=== PATIENT | male | born 1955 | race Caucasian/White ===

== ENCOUNTER 2017-04-03 14:26 | Emergency (ER) | payer BC ==
[2017-04-03 14:42] VITALS: BP 119/77
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
== END 2017-04-03 15:52 ==
LOC: UCEAST 14:26
DX: R42 Dizziness and giddiness (principal); R51 Headache; R20.2 Paresthesia of skin; R26.81 Unsteadiness on feet; Z88.1 Allergy status to other antibiotic agents; Z88.0 Allergy status to penicillin; Z88.8 Allergy status to other drugs, medicaments and biological substances
CPT/HCPCS: 93005; 99212; G0463

== ENCOUNTER 2017-04-03 18:27 | Emergency (ER) | payer BC ==
[2017-04-03 21:00] LABS: ABS Basophils 0.1 10^3/ul (0-0.2); ABS Eosinophils 0.1 10^3/ul (0-0.6); ABS Lymphocytes 1.9 10^3/ul (1.0-4.8); ABS Neutrophils 6.2 10^3/ul (1.5-7.7); ABS Nucleated RBC 0 10^3/ul; Eosinophil % 1.5 % (0-6); Hematocrit 40 % (42-52); Hemoglobin 13.9 g/dl (14.0-18.0); Lymphocyte % 20.2 % (25-47); Mean Corpuscular HGB Conc 35 g/dl (31-36); Mean Corpuscular Hemoglobin 32 pg (27-31); Mean Corpuscular Volume 91 fL (80-94); Mean Platelet Volume 7 um3 (7.4-10.4); Nucleated Red Blood Cells % 0.1; Platelet Count 318 10^3/ul (150-450); Red Blood Count 4.39 10^6/ul (4.0-5.4); Red Cell Distribution Width 13 % (10.5-15); White Blood Count 9.3 10^3/ul (3.5-10.8)
[2017-04-03 21:15] LABS: EGFR Non-African American 113.6 (>60)
--- NOTE | 2017-04-03 22:01 | RAD ---
INDICATION: Dizziness COMPARISON: CT brain October 15, 2015 TECHNIQUE: Noncontrast axial source images were acquired from the skull base to the vertex. FINDINGS: Ventricles/sulci: The ventricles and cisterns are normal in size and configuration for age. Brain parenchyma: There is no focal parenchymal finding, evidence of intracranial mass, or intracranial mass effect. Intracranial hemorrhage:None. Extra-axial spaces: There are no abnormal extra axial fluid collections or evidence of extra-axial mass. Calvarium: There is no calvarial fracture or other calvarial abnormality. Scalp: There is no evidence of scalp or extracalvarial soft tissue abnormality. Paranasal sinuses/mastoid: The paranasal sinuses and mastoid air cells are clear. Other: None. IMPRESSION: No acute intracranial findings
[2017-04-03 22:12] LABS: Urine Appearance Clear; Urine Blood Negative (Negative); Urine Color Yellow; Urine Ketones Negative (Negative); Urine Protein Negative (Negative); Urine Specific Gravity 1.017 (1.010-1.030); Urine Urobilinogen Negative (Negative)
--- NOTE | 2017-04-03 22:37 | ED ---
I, Melodie Rosario, scribed for Darrin Meier MD on 04/03/17 at 2222 . Progress - Progress Note Progress Note: The patient is signed out from Dr. Mcneal pending Brain CT. Brain CT. Interpreted by a radiologist. IMPRESSION: No acute intracranial findings. Dr. Meier has reviewed this report. Re-Evaluation - Re-Evaluation First Eval Change: Improved - pt offered IVF, etc -- he refused. States he would rather take oral fluids. Given oral water. Course/Dx - Course Course Of Treatment: Pt had fleeting dizziness, better now. Also reports hx of neuropathy etc. Now with some twitching and some discomfort of the R eye. No blephrospams. CN intact. Vision nl. EOMi. Will tx with hydration and prn DEGROOT medication. Has f/u early next week with [facility] with whom he is establishing. - Diagnoses Provider Diagnoses: Dizziness, Mild dehydration, Cluster headache The documentation as recorded by the kimibeAbraham Jennifer accurately reflects the service I personally performed and the decisions made by , Darrin Meier MD.
[2017-04-03 22:55] VITALS: BP 139/78
--- NOTE | 2017-04-04 20:46 | ED ---
Juju Deleon Julia, scribed for Cody Mcneal on 04/03/17 at 2123 . Dizziness - HPI Summary HPI Summary: This patient is a 61 year old M presenting to [facility] with a chief complaint of dizziness and headache behind the eyes for the past month. Patient reports neck pain and extremities. Patient denies chest pain SOB, and fever. The patient rates the pain 7/10 in severity. Symptoms aggravated by standing and. Patient reports history of neuropathy that is aggravated by eating. - History Of Current Complaint Chief Complaint: EDDizziness Stated Complaint: DIZZINESS/NUMBNESS Time Seen by Provider: 04/03/17 21:09 Hx Obtained From: Patient Onset/Duration: Unknown - with standing Timing: Weeks Aggravating Factor(s): Other - standing Associated Signs And Symptoms: Positive: Other: - neck and extremity pain Related History: Similar Episode/Dx as - neuropathy - Allergies/Home Medications Allergies/Adverse Reactions: Allergies Allergy/AdvReac Type Severity Reaction Status Date / Time cefadroxil [From Duricef] Allergy Severe Rash Verified 04/03/17 15:16 fluoxetine [From Prozac] Allergy Severe Rash Verified 04/03/17 15:16 Penicillins Allergy Severe Nausea Verified 04/03/17 15:16 thiabendazole Allergy Severe RED SKIN Verified 04/03/17 15:16 PMH/Surg Hx/FS Hx/Imm Hx Endocrine/Hematology History: Denies: Hx Diabetes, Hx Thyroid Disease Cardiovascular History: Denies: Hx Hypertension, Hx Pacemaker/ICD Respiratory History: Denies: Hx Asthma, Hx Chronic Obstructive Pulmonary Disease (COPD) GI History: Denies: Hx Ulcer History: Denies: Hx Renal Disease Musculoskeletal History: Denies: Hx Rheumatoid Arthritis, Hx Osteoporosis Sensory History: Denies: Hx Hearing Aid Psychiatric History: Denies: Hx Panic Disorder Infectious Disease History: No Infectious Disease History: Denies: Hx Hepatitis, Hx Human Immunodeficiency Virus (HIV), Traveled Outside the [place] in Last 30 Days - Family History Known Family History: Negative: Hypertension, Diabetes - Social History Alcohol Use: Rare Hx Substance Use: No Substance Use Type: Reports: None Hx Tobacco Use: No Smoking Status (MU): Never Smoked Tobacco Review of Systems Negative: Chest Pain Negative: Shortness Of Breath Positive: Myalgia - neck and extremity pain Neurological: Other - dizziness Positive: Headache All Other Systems Reviewed And Are Negative: Yes Physical Exam - Summary Physical Exam Summary: Appearance: Well appearing, no pain distress Skin: warm, dry, reflects adequate perfusion Head/face: normal Eyes: EOMI, CINDY ENT: normal Neck: supple, non-tender Respiratory: CTA, breath sounds present Cardiovascular: RRR, pulses symmetrical Abdomen: non-tender, soft Bowel: present Musculoskeletal: normal, strength/ROM intact Neuro: normal, sensory motor intact, A&Ox3 Triage Information Reviewed: Yes Vital Signs On Initial Exam: Initial Vitals Temp Pulse Resp BP Pulse Ox 99.1 F 74 18 133/86 96 04/03/17 18:33 04/03/17 18:33 04/03/17 18:33 04/03/17 18:33 04/03/17 18:33 Vital Signs Reviewed: Yes Diagnostics - Vital Signs Vital Signs Temp Pulse Resp BP Pulse Ox 04/03/17 18:33 99.1 F 74 18 133/86 96 - Laboratory Lab Results: Lab Results 04/03/17 04/03/17 04/03/17 Range/Units 20:38 20:38 20:38 WBC 9.3 (3.5-10.8) 10^3/ul RBC 4.39 (4.0-5.4) 10^6/ul Hgb 13.9 L (14.0-18.0) g/dl Hct 40 L (42-52) % MCV 91 (80-94) fL MCH 32 H (27-31) pg MCHC 35 (31-36) g/dl RDW 13 (10.5-15) % Plt Count 318 (150-450) 10^3/ul MPV 7 L (7.4-10.4) um3 Neut % (Auto) 66.5 (38-83) % Lymph % (Auto) 20.2 L (25-47) % [place] % (Auto) 11.1 H (1-9) % Eos % (Auto) 1.5 (0-6) % Baso % (Auto) 0.7 (0-2) % Absolute Neuts (auto) 6.2 (1.5-7.7) 10^3/ul Absolute Lymphs (auto) 1.9 (1.0-4.8) 10^3/ul Absolute Monos (auto) 1.0 H (0-0.8) 10^3/ul Absolute Eos (auto) 0.1 (0-0.6) 10^3/ul Absolute Basos (auto) 0.1 (0-0.2) 10^3/ul Absolute Nucleated RBC 0 10^3/ul Nucleated RBC % 0.1 Sodium 139 (133-145) mmol/L Potassium Pending Chloride 101 (101-111) mmol/L Carbon Dioxide 32 (22-32) mmol/L Anion Gap Pending BUN 27 H (6-24) mg/dL Creatinine 0.71 (0.67-1.17) mg/dL Est GFR ( Amer) 146.0 (>60) Est GFR (Non-Af Amer) 113.6 (>60) BUN/Creatinine Ratio 38.0 H (8-20) Glucose 93 (70-100) mg/dL Lactic Acid 0.7 (0.5-2.0) mmol/L Calcium 10.4 H (8.6-10.3) mg/dL Magnesium 2.0 (1.9-2.7) mg/dL Total Bilirubin 0.50 (0.2-1.0) mg/dL AST Pending ALT 21 (7-52) U/L Alkaline Phosphatase 101 (34-104) U/L Troponin I Pending Total Protein 7.3 (6.4-8.9) g/dL Albumin 4.5 (3.2-5.2) g/dL Globulin 2.8 (2-4) g/dL Albumin/Globulin Ratio 1.6 (1-3) TSH Pending Result Diagrams: 04/03/17 20:38 04/03/17 20:38 Lab Statement: Any lab studies that have been ordered have been reviewed, and results considered in the medical decision making process. - EKG 2100 Cardiac Rate: NL - at 59 BPM EKG Rhythm: Sinus Rhythm EKG Interpretation: no acture changes Dizzy Course/Dx - Course Course Of Treatment: This patient presents with dizziness and headache behind the eyes for the past month. Patient reports neck pain and extremities. Patient denies chest pain SOB, and fever. An EKG was unremarkable. Bloodwork was ordered and is unremarkable. A Brain CT was ordered but not recieved before end of shift. Patient care is transfered to Dr. Meier at the end of shift. - Diagnoses Provider Diagnoses: Dizziness Discharge - Discharge Plan Condition: Stable Disposition: OTHER Discharge Disposition Comment: Patient is signed out to Dr. Meier at the end of shift Referrals: No Primary Care Phys,NOPCP [Primary Care Provider] - The documentation as recorded by the Juju morales Julia accurately reflects the service I personally performed and the decisions made by me, Cody Mcneal.
== END 2017-04-03 22:54 | disposition home or self-care (01) ==
LOC: ED 18:27
DX: R42 Dizziness and giddiness (principal); R51 Headache; M79.1 Myalgia; Z88.1 Allergy status to other antibiotic agents; Z88.0 Allergy status to penicillin; Z88.8 Allergy status to other drugs, medicaments and biological substances
CPT/HCPCS: 36415; 70450; 80053; 81003; 83605; 83735; 84443; 84484; 85025; 93005; 99282

== ENCOUNTER 2017-04-10 14:37 | Emergency (ER) | payer BC ==
--- NOTE | 2017-04-10 15:33 | RAD ---
INDICATION: Left hip pain COMPARISON: November 05, 2016 TECHNIQUE: An AP view of the pelvis and AP views of the hip in neutral and abducted position were obtained FINDINGS: There is advanced osteoarthritic change about the left hip with deformity and coxa varus deformity. There is obliteration of joint space superiorly with sclerosis. There is no acute bony change. There is moderate arthritic change about the right hip. The SI joints and symphysis are intact. Generator devices project over the lower abdomen. IMPRESSION: ADVANCED OSTEOARTHRITIS LEFT HIP WITH DEFORMITY. MODERATE OSTEOARTHRITIS RIGHT HIP. NO ACUTE FINDINGS.
[2017-04-10] MEDS ORDERED: traMADol TAB* 50 MG PO ONE (15:51)
--- NOTE | 2017-04-10 16:10 | RAD ---
INDICATION: Arthritis left hip. Injury. COMPARISON: Left hip same date TECHNIQUE: Noncontrast axial source images were obtained from the iliac crests through the symphysis pubis. FINDINGS: There are no CT abnormalities of the bony pelvis. There are advanced degenerative changes about the left hip as described on the plain radiographs with spurring about the acetabulum and femoral head, flattening of the femoral head, and obliteration of the joint space superiorly. There are moderate osteocytic changes about the right hip. The SI joints and symphysis are intact. The prostate and seminal vesicles are normal. No free fluid or adenopathy is seen. The noncontrast CT appearance of the bowel is unremarkable. The superficial soft tissues appear normal. The bladder appears normal. IMPRESSION: ADVANCED OSTEOARTHRITIC CHANGE ABOUT THE LEFT HIP. MODERATE OSTEOARTHRITIS RIGHT HIP. NO ACUTE FINDINGS.
[2017-04-10 17:30] VITALS: BP 140/81
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
== END 2017-04-10 17:30 | disposition home or self-care (01) ==
LOC: ED 14:37
DX: S70.02XA Contusion of left hip, initial encounter (principal); V13.4XXA Pedal cycle driver injured in collision with car, pick-up truck or van in traffic accident, initial encounter; Y93.55 Activity, bike riding; Y92.9 Unspecified place or not applicable; M16.0 Bilateral primary osteoarthritis of hip; Z88.8 Allergy status to other drugs, medicaments and biological substances; Z88.0 Allergy status to penicillin
CPT/HCPCS: 72192; 99283; A9270-GY

== ENCOUNTER 2017-04-13 13:51 | Emergency (ER) | payer BC ==
[2017-04-13 14:05] VITALS: BP 134/76
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
== END 2017-04-13 14:47 | disposition home or self-care (01) ==
LOC: UCEAST 13:51
DX: L03.114 Cellulitis of left upper limb (principal); S80.212A Abrasion, left knee, initial encounter; S80.812A Abrasion, left lower leg, initial encounter; M25.552 Pain in left hip; V13.4XXA Pedal cycle driver injured in collision with car, pick-up truck or van in traffic accident, initial encounter; Y93.55 Activity, bike riding; Y92.9 Unspecified place or not applicable; Z88.0 Allergy status to penicillin
CPT/HCPCS: 99212; G0463

== ENCOUNTER 2017-04-21 12:47 | Emergency (ER) | payer BC ==
[2017-04-21 12:56] VITALS: BP 129/87
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
== END 2017-04-21 13:50 | disposition home or self-care (01) ==
LOC: UCEAST 12:47
DX: S50.812A Abrasion of left forearm, initial encounter (principal); S80.812A Abrasion, left lower leg, initial encounter; S70.02XA Contusion of left hip, initial encounter; S80.02XA Contusion of left knee, initial encounter; V18.0XXA Pedal cycle driver injured in noncollision transport accident in nontraffic accident, initial encounter; Y93.55 Activity, bike riding; Y92.9 Unspecified place or not applicable; Z88.1 Allergy status to other antibiotic agents; Z88.0 Allergy status to penicillin; Z88.8 Allergy status to other drugs, medicaments and biological substances
CPT/HCPCS: 99212; G0463

== ENCOUNTER 2017-04-28 11:26 | Emergency (ER) | payer BC ==
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
[2017-04-28 11:49] VITALS: BP 127/71
== END 2017-04-28 12:08 | disposition home or self-care (01) ==
LOC: UCEAST 11:26
DX: S81.812D Laceration without foreign body, left lower leg, subsequent encounter (principal); T14.8XXD Other injury of unspecified body region, subsequent encounter; V13.4XXD Pedal cycle driver injured in collision with car, pick-up truck or van in traffic accident, subsequent encounter; Z88.0 Allergy status to penicillin; Z88.8 Allergy status to other drugs, medicaments and biological substances
CPT/HCPCS: 99211; G0463

== ENCOUNTER 2017-05-16 15:22 | Emergency (ER) | payer BC ==
[2017-05-16 15:50] VITALS: BP 140/86
--- NOTE | 2017-05-16 17:41 | UC ---
Lower Extremity/Ankle HPI - HPI Summary HPI Summary: 61 yo WM h/o peripheral neuropathy, mild venous insufficiency associated with mild B/L feet swelling - History of Current Complaint Chief Complaint: UCLowerExtremity Stated Complaint: SWOLLEN FEET Time Seen by Provider: 05/16/17 15:59 Hx Obtained From: Patient Onset/Duration: Lasting Days Severity Initially: Mild Severity Currently: Mild Pain Intensity: 3 - Allergies/Home Medications Allergies/Adverse Reactions: Allergies Allergy/AdvReac Type Severity Reaction Status Date / Time cefadroxil [From Duricef] Allergy Severe Rash Verified 05/16/17 15:44 fluoxetine [From Prozac] Allergy Severe Rash Verified 05/16/17 15:44 thiabendazole Allergy Severe RED SKIN Verified 05/16/17 15:44 Penicillins AdvReac Severe Nausea Verified 05/16/17 15:44 Home Medications: Home Medications Testosterone Cypionate 100 mg IM WEEKLY 05/16/17 [History Confirmed 05/16/17] PMH/Surg Hx/FS Hx/Imm Hx Previously Healthy: Yes - Surgical History Surgical History: None - Family History Known Family History: Positive: None Negative: Hypertension, Diabetes Family History: Leukemia from father side - Social History Alcohol Use: Occasionally Substance Use Type: None Smoking Status (MU): Never Smoked Tobacco - Immunization History Most Recent Tetanus Shot: 2014 Review of Systems Constitutional: Negative Skin: Negative Eyes: Negative ENT: Negative Respiratory: Negative Cardiovascular: Negative Gastrointestinal: Negative Genitourinary: Negative Motor: Negative Neurovascular: Negative Musculoskeletal: Negative, Edema - B/L feet, mild Neurological: Negative Psychological: Negative All Other Systems Reviewed And Are Negative: No Physical Exam Triage Information Reviewed: Yes Vital Signs: Initial Vital Signs Temp 36.8 C 05/16/17 15:43 Pulse 60 05/16/17 15:43 Resp 18 05/16/17 15:43 BP 140/86 05/16/17 15:43 Pulse Ox 100 05/16/17 15:43 Eye Exam: Normal ENT Exam: Normal Dental Exam: Normal Neck exam: Normal Neck: Positive: 1 Respiratory Exam: Normal Cardiovascular Exam: Normal Abdominal Exam: Normal Musculoskeletal Exam: Normal Musculoskeletal: Positive: Other: - no edema noted on B/L feet Neurological Exam: Normal Psychological Exam: Normal Skin Exam: Normal Lower Extremity Course/Dx - Course Course Of Treatment: B/L feet swelling is not apparent on exam- pt does have h/ o venous insufficiency and peripheral neuropathy+/-arthrithis. Pt curious about hormonal imbalance for which endocrine and neurology consult and follow up is advised - Differential Dx/Diagnosis Provider Diagnoses: Feet swelling. hypochondriasis Discharge - Sign-Out/Discharge Documenting (check all that apply): Discharge - Discharge Plan Condition: Stable Disposition: HOME Patient Education Materials: Venous Insufficiency (DC), Paresthesia (ED), Leg Cramps (ED) Referrals: Anderson Jauregui MD [Primary Care Provider] - Additional Instructions: please follow up with endocrinology as needed - Billing Disposition and Condition Condition: STABLE Disposition: HOME
== END 2017-05-16 17:40 | disposition home or self-care (01) ==
LOC: UCEAST 15:22
DX: R60.0 Localized edema (principal); F45.21 Hypochondriasis; G62.9 Polyneuropathy, unspecified; I87.2 Venous insufficiency (chronic) (peripheral); Z88.1 Allergy status to other antibiotic agents; Z88.0 Allergy status to penicillin; Z88.8 Allergy status to other drugs, medicaments and biological substances
CPT/HCPCS: 99211; G0463

== ENCOUNTER 2017-06-06 19:52 | Emergency (ER) | payer BC ==
[2017-06-06 20:08] VITALS: BP 152/68
[2017-06-06] MEDS ORDERED: Benzocaine/Butamben/Tetracain* SPRAY TOPICAL ONE (20:13)
--- NOTE | 2017-06-06 20:22 | UC ---
General HPI - HPI Summary HPI Summary: 61 yo WM p/w acute tongue pain x few hrs after drinking a powder mixture of "yohimbe" taking the contents out of the capsule and mixing in his drink, c/o severe sharp tongue pain - History of Current Complaint Chief Complaint: UCBurn Stated Complaint: BURNED TONGUE Time Seen by Provider: 06/06/17 19:52 Hx Obtained From: Patient Onset/Duration: Gradual Onset Onset Severity: Moderate Current Severity: Moderate Pain Intensity: 7 - Allergy/Home Medications Allergies/Adverse Reactions: Allergies Allergy/AdvReac Type Severity Reaction Status Date / Time cefadroxil [From Duricef] Allergy Severe Rash Verified 06/06/17 20:08 fluoxetine [From Prozac] Allergy Severe Rash Verified 06/06/17 20:08 thiabendazole Allergy Severe RED SKIN Verified 06/06/17 20:08 Penicillins AdvReac Severe Nausea Verified 06/06/17 20:08 PMH/Surg Hx/FS Hx/Imm Hx Previously Healthy: Yes - Surgical History Surgical History: None - Family History Known Family History: Positive: None Negative: Hypertension, Diabetes Family History: Leukemia from father side - Social History Alcohol Use: Occasionally Substance Use Type: None Smoking Status (MU): Never Smoked Tobacco - Immunization History Most Recent Tetanus Shot: 2014 Review of Systems Constitutional: Negative Skin: Negative Eyes: Negative ENT: Other - tongue pain and burning Respiratory: Negative Cardiovascular: Negative Gastrointestinal: Negative Genitourinary: Negative Motor: Negative Neurovascular: Negative Musculoskeletal: Negative Neurological: Negative Psychological: Negative All Other Systems Reviewed And Are Negative: Yes Physical Exam Triage Information Reviewed: Yes Appearance: No Pain Distress Vital Signs: Initial Vital Signs Temp 36.5 C 06/06/17 20:04 Pulse 68 06/06/17 20:04 Resp 18 06/06/17 20:04 BP 152/68 06/06/17 20:04 Pulse Ox 100 06/06/17 20:04 Eye Exam: Normal ENT: Positive: Pharynx normal, Other - moderate erythema on left side of tongue area of 2x2cm, no ulcerations, sores or drainage Dental Exam: Normal Neck exam: Normal Neck: Positive: 1 Respiratory Exam: Normal Cardiovascular Exam: Normal Abdominal Exam: Normal Musculoskeletal Exam: Normal Neurological Exam: Normal Psychological Exam: Normal Skin Exam: Normal Course/Dx - Course Course Of Treatment: [place] cetacaine to afftected area 2x daily PRN x 3 days - Differential Dx - Multi-Symptom Provider Diagnoses: Tongue pain Discharge - Sign-Out/Discharge Documenting (check all that apply): Discharge/Admit/Transfer - Discharge Plan Condition: Stable Disposition: HOME Referrals: Anderson Jauregui MD [Primary Care Provider] - Additional Instructions: GO to ER if pain worsens - Billing Disposition and Condition Condition: STABLE Disposition: HOME
== END 2017-06-06 20:30 | disposition home or self-care (01) ==
LOC: UCEAST 19:52
DX: K14.6 Glossodynia (principal); Z88.1 Allergy status to other antibiotic agents; Z88.0 Allergy status to penicillin; Z88.8 Allergy status to other drugs, medicaments and biological substances
CPT/HCPCS: 99212; A9270-GY; G0463

== ENCOUNTER 2018-06-17 12:53 | Emergency (ER) | payer BC ==
[2018-06-17 13:12] VITALS: BP 106/67
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
== END 2018-06-17 13:33 | disposition home or self-care (01) ==
LOC: UCEAST 12:53
DX: S51.812A Laceration without foreign body of left forearm, initial encounter (principal); W22.8XXA Striking against or struck by other objects, initial encounter; Y92.9 Unspecified place or not applicable; E29.1 Testicular hypofunction; Z88.1 Allergy status to other antibiotic agents; Z88.0 Allergy status to penicillin; Z88.8 Allergy status to other drugs, medicaments and biological substances
CPT/HCPCS: 99212; G0463

== ENCOUNTER 2018-06-18 17:37 | Emergency (ER) | payer BC ==
[2018-06-18 18:05] VITALS: BP 127/83
--- NOTE | 2018-06-18 18:15 | UC ---
Upper Extremity HPI - HPI Summary HPI Summary: 62 y/o female presents to the urgent care c/o a wound in his left arm for the past week. Pt reports he sustained a skin tear s/p running into a door. He was applying Bactroban ointment and covering it w/ a band-aid, but wound became infected and he was seen here at the clinic and Rx Doxycycline PO since he is allergic to PCN and ciprofloxacin. Pt has already taken 3 tabs of antibiotics and this morning, wound was draining a yellowish discharge and redness was bigger. He is concerned the antibiotic is not working. Pt states pain is mild 2/ 10 at touch and denies fever, SOB, dizziness, chest pain, abdominal pain, N/V/ D. - History of Current Complaint Chief Complaint: UCUpperExtremity Stated Complaint: LT ARM INJURY Time Seen by Provider: 06/18/18 18:13 Hx Obtained From: Patient Onset/Duration: Sudden Onset, Lasting Weeks - 1 week, Still Present, Worse Since - 2 days Severity Initially: Moderate Severity Currently: Moderate Pain Intensity: 2 Pain Scale Used: 0-10 Numeric Location Of Pain: Is Discrete @ - dorsal side of left forearm w/ an infected wound Aggravating Factor(s): Other - touch Alleviating Factor(s): OTC Meds Associated Signs And Symptoms: Positive: Redness. Negative: Bruising, Fever, Weakness, Numbness/Tingling Related History: Dominant Hand Right - Risk Factors Non-Orthopedic Risk Factor: Negative DVT Risk Factors: Negative Septic Arthritis Risk Factor: Negative - Allergies/Home Medications Allergies/Adverse Reactions: Allergies Allergy/AdvReac Type Severity Reaction Status Date / Time cefadroxil [From Duricef] Allergy Severe Rash Verified 06/18/18 18:05 fluoxetine [From Prozac] Allergy Severe Rash Verified 06/18/18 18:05 thiabendazole Allergy Severe RED SKIN Verified 06/18/18 18:05 ciprofloxacin [From Cipro] Allergy Unknown Verified 06/18/18 18:05 Reaction Details Penicillins AdvReac Severe Nausea Verified 06/18/18 18:05 PMH/Surg Hx/FS Hx/Imm Hx Previously Healthy: Yes - Pt denies PMHX - Surgical History Surgical History: None - Family History Known Family History: Positive: None - Pt denies FMHX Negative: Hypertension, Diabetes Family History: Leukemia from father side - Social History Occupation: Employed Full-time Lives: With Family Alcohol Use: Occasionally Substance Use Type: None Smoking Status (MU): Never Smoked Tobacco - Immunization History Most Recent Tetanus Shot: 2014 Review of Systems All Other Systems Reviewed And Are Negative: Yes Constitutional: Positive: Negative Skin: Positive: Other - dorsal side of left forearm w/ a skin tear wound red and painful and yellowish drainage ENT: Positive: Negative Respiratory: Positive: Negative Cardiovascular: Positive: Negative Gastrointestinal: Positive: Negative Genitourinary: Positive: Negative Motor: Positive: Negative Neurovascular: Positive: Negative Musculoskeletal: Positive: Other: - left forearm pain s/p skin tear Neurological: Positive: Negative Psychological: Positive: Negative Is Patient Immunocompromised?: No Physical Exam - Summary Physical Exam Summary: Vital Signs Reviewed: Yes General: well developed, well nourished male sitting in the examining table w/o any apparent distress Eye Exam: Normal Eyes: Positive: Conjunctiva Clear - PERRLA, EOMI, fundi grossly normal ENT: Positive: Normal ENT inspection, Hearing grossly normal, Pharynx normal, TMs normal Neck: Positive: Supple, Nontender, No Lymphadenopathy Respiratory: Positive: Chest non-tender, Lungs clear, Normal breath sounds, No respiratory distress Cardiovascular: Positive: RRR, No Murmur, Pulses Normal, Brisk Capillary Refill Abdomen Description: Positive: Nontender, No Organomegaly, Soft. Negative: CVA Tenderness (R), CVA Tenderness (L) Bowel Sounds: Positive: Present Musculoskeletal: Positive: Strength Intact, ROM Intact, No Edema Neurological: Positive: Alert, Muscle Tone Normal Psychological Exam: Normal Skin: Positive:Dorsal side if the left mid forearm with 2 small skin tears one adjacent to the the other, round shape, about 2.0 x 1.0cm in size w/ surrounding erythema and mild tenderness to palpation and some clear drainage and central granulation observed. no foreign body observed. no ecchymosis or bruising or streaking around wound or soft tissue swelling observed. FROM of LF arm, sensation intact, capillary refill brisk, and pulses WNL. Triage Information Reviewed: Yes Vital Signs: Initial Vital Signs Temp 97.9 F 06/18/18 17:59 Pulse 53 06/18/18 17:59 Resp 16 06/18/18 17:59 BP 127/83 06/18/18 17:59 Pulse Ox 99 06/18/18 17:59 Upper Extremity Course/Dx - Course Course Of Treatment: 62 y/o female presents to the urgent care c/o a wound in his left arm for the past week. Pt reports he sustained a skin tear s/p running into a door. He was applying Bactroban ointment and covering it w/ a band-aid, but wound became infected and he was seen here at the clinic and Rx Doxycycline PO since he is allergic to PCN and ciprofloxacin. Pt has already taken 3 tabs of antibiotics and this morning, wound was draining a yellowish discharge and redness was bigger. He is concerned the antibiotic is not working. Pt states pain is mild 2/ 10 at touch and denies fever, SOB, dizziness, chest pain, abdominal pain, N/V/ D. Hx obtained. PT w/ Dorsal side if the left mid forearm with 2 small skin tears one adjacent to the the other, round shape, about 2.0 x 1.0cm in size w/ surrounding erythema and mild tenderness to palpation and some clear drainage and central granulation observed. no foreign body observed. no ecchymosis or bruising or streaking around wound or soft tissue swelling observed. FROM of LF arm, sensation intact, capillary refill brisk, and pulses WNL on examination. Wound culture taken form wound and sent to lab to r/o MRSA and sensitivity. Pt will be notified of any abnormality. Pt advised to continue taken Doxycycline since he need to allow antibiotic to work. Wound cleaned w/ iodine swabs and Bacitracin oint applied over wound and wound covered w/sterile dressing by me. Pt Rx Bacitracin oint. Pt advised if streaking develops or severe arm pain and fever develops despite taking antibiotics to go immediately to the ER for further management. D/C instructions explained. Pt understood and agreed w. plan of care. Pt left clinic hemodynamically stabel, A&OX3 - Differential Dx/Diagnosis Differential Diagnosis/HQI/PQRI: Contusion, Other - laceration, puncture wound Provider Diagnosis: Infected wound Discharge - Sign-Out/Discharge Documenting (check all that apply): Patient Departure - d/c home All imaging exams completed and their final reports reviewed: No Studies - Discharge Plan Condition: Stable Disposition: HOME Prescriptions: Bacitracin OINTMENT* 1 applic TOPICAL BID #1 tube Patient Education Materials: Wound Infection (ED) Referrals: Anderson Jauregui MD [Primary Care Provider] - 3 Days Additional Instructions: 1-Please continue taking Doxycycline PO as directed full course of antibiotic to avoid resistance. Keep wound clean and dry with a sterile dressing. Apply bacitracin topical ointment as directed 3- Take Ibuprofen or Tylenol PO q6-8hrs prn after meals for pain or swelling. 4-If you develop fever or redness despite antibiotic please go to the ER immediately or return to the Urgent care. 5- Wound culture sent to lab, if any abnormal result you will receive a call from us. - Billing Disposition and Condition Condition: STABLE Disposition: Home - Attestation Statements Provider Attestation: I was available for consult. This patient was seen by the [facility]. The patient was not presented to, seen by, or examined by me. -Johnnie
--- NOTE | 2018-06-22 07:39 | UC ---
- Progress Note Progress Note: Final wound - normal mitzi pt on doxy no change ljj 06/22/18 Course/Dx - Diagnoses Provider Diagnoses: Infected wound Discharge - Sign-Out/Discharge Documenting (check all that apply): Post-Discharge Follow Up All imaging exams completed and their final reports reviewed: No Studies - Discharge Plan Condition: Stable Disposition: HOME Prescriptions: Bacitracin OINTMENT* 1 applic TOPICAL BID #1 tube Patient Education Materials: Wound Infection (ED) Referrals: Anderson Jauregui MD [Primary Care Provider] - 3 Days Additional Instructions: 1-Please continue taking Doxycycline PO as directed full course of antibiotic to avoid resistance. Keep wound clean and dry with a sterile dressing. Apply bacitracin topical ointment as directed 3- Take Ibuprofen or Tylenol PO q6-8hrs prn after meals for pain or swelling. 4-If you develop fever or redness despite antibiotic please go to the ER immediately or return to the Urgent care. 5- Wound culture sent to lab, if any abnormal result you will receive a call from us. - Billing Disposition and Condition Condition: STABLE Disposition: Home
== END 2018-06-18 19:20 | disposition home or self-care (01) ==
LOC: UCEAST 17:37
DX: S51.812D Laceration without foreign body of left forearm, subsequent encounter (principal); L08.9 Local infection of the skin and subcutaneous tissue, unspecified; W22.8XXD Striking against or struck by other objects, subsequent encounter; Z88.1 Allergy status to other antibiotic agents; Z88.0 Allergy status to penicillin; Z88.8 Allergy status to other drugs, medicaments and biological substances
CPT/HCPCS: 87070; 87077; 87205; 99212; G0463

== ENCOUNTER 2018-07-10 21:44 | Emergency (ER) | payer BC ==
--- OUTSIDE RECORDS SUMMARY | 2018-07-10 21:49 | XMS REPORT | Continuity of Care Document ---
:1955 External Reference #:[id number] Author Name Anderson Jauregui MD Address [address] [place] [address] Care Team Providers Name Role Phone Anderson Jauregui MD Care Team Information [employer] Unavailable Anderson Jauregui MD Primary Care Physician Unavailable Payers Date Identification Numbers Payment Provider Subscriber Policy Number: [id number] BC/BS Of [facility] Nick Guillermo Group Number: [id number] Group Name: [place] [address] PayID: [id number] Advance Directives Description No Information Available Problems Description No Information Family History Description No Information Available Social History Type Date Description Comments Sex Unknown Tobacco Use Start: Unknown Nonsmoker Smoking Status Reviewed: 04/08/17 Nonsmoker Allergies, Adverse Reactions, Alerts Active Allergies Reaction Severity Comments Date Penicillin G swelling, rash 04/08/2017 Cipro rash, hives 04/08/2017 Prozac cracking skin swelling skin 04/08/2017 Thiabendazole rash 04/08/2017 Cefadroxil 04/30/2018 Medications Active Medications SIG Qnty Indications Ordering Provider Date Bacitracin (External) apply to affected Unknown area(s) qd 500Unit/GM Ointment Mupirocin apply topically to Unknown 2% Ointment affected area(s) qd History Medications Promethazine HCL 1-2 tab by mouth Unknown - 04/29/2018 25mg Tablets every 6 hours as needed Mobic 1 by mouth twice Unknown - 06/24/2018 7.5mg Tablets daily prn Immunizations Description No Information Available Vital Signs Date Vital Result Comment 06/25/2018 4:22pm BP Systolic 106 mmHg BP Diastolic 60 mmHg Heart Rate 60 /min Body Temperature 97.9 F Respiratory Rate 16 /min Height 70 inches 5'10" Weight 130.12 lb BMI (Body Mass Index) 18.7 kg/m2 04/30/2018 7:22pm BP Systolic 120 mmHg BP Diastolic 60 mmHg Heart Rate 72 /min Body Temperature 98.6 F Respiratory Rate 16 /min Height 70 inches 5'10" Weight 136.12 lb BMI (Body Mass Index) 19.5 kg/m2 06/03/2017 12:58pm BP Systolic 100 mmHg BP Diastolic 64 mmHg Heart Rate 64 /min Body Temperature 98.1 F Respiratory Rate 16 /min Weight 141.50 lb 05/20/2017 12:49pm BP Systolic 92 mmHg BP Diastolic 68 mmHg Heart Rate 68 /min Body Temperature 97.7 F Respiratory Rate 16 /min Height 70 inches 5'10" Weight 137.38 lb BMI (Body Mass Index) 19.7 kg/m2 04/08/2017 2:00pm BP Systolic 106 mmHg BP Diastolic 66 mmHg Heart Rate 80 /min Body Temperature 97.7 F Respiratory Rate 16 /min Height 70 inches 5'10" Weight 133.00 lb BMI (Body Mass Index) 19.1 kg/m2 Right Visual Acuity Distance 20/20 Left Visual Acuity Distance 20/20 Results Test Date Facility Test Result H/L Range Note Wound 06/18/2018 [facility] [place]/Misc SEE RESULT 1, 2 Culture/Sensi Culture-Gram BELOW Stain Laboratory test 04/23/2018 [facility]) Ferritin 136 ng/mL 22- 415 finding TSH 1.98 mIU/L 0.50-6.00 Comprehensive Metabolic 04/23/2018 [facility]) Sodium 143 mEq/L 134-149 Prof Potassium 4.6 mEq/L 3.6-5.5 Chloride 100 mEq/L 94-112 Carbon Dioxide 30 mEq/L 21-32 Glucose 98 mg/dL 70-105 BUN 15 mg/dL 6-26 Creatinine 0.8 mg/dL 0.6-1.4 BUN/Creat Ratio 18.8 CALC 8.0-36.0 Calcium 10.2 mg/dL 8.6-10.2 Total Protein 8.0 g/dL 6.4-8.3 Albumin 5.3 g/dL 3.8-5.5 Globulin 2.7 g/dL 2.0-4.8 A/G Ratio 2.0 CALC 0.6-2.3 Alk. Phosphatase 75 U/L 22-95 Alt (SGPT) 39 U/L High 7-35 Ast (Sgot) 38 U/L High 5-34 Total Bilirubin 0.7 mg/dL 0.2-1.3 GFR Non- >60 ml/min/1.73m^ >=60 GFR >60 ml/min/1.73m^ >=60 CBC Electronic (Fma New) 04/23/2018 [facility] WBC 6.47 4.0-10.0 (607)- - RBC 5.33 3.93-6.0 Hemoglobin (Fma/CMC/CTX) 16.9 g/dL 12.0-17.0 Hematocrit (Fma/CMC/CTX) 50.1 % High 35.0-50.0 Mean Corpuscular Vol 94.0 fL 80-95 Mean Corpuscular Hemoglobin 31.7 pg 25.6-32.2 Mean Corpuscular Hemo Concen 33.7 g/dL 32.2-36.0 Platelets 330 10^3/ul 163-400 RDW-CV 12.8 11.6-14.4 Mean Platelet Volume 9.9 fL 8.0-12.4 Absolute Neutrophils BLD 4.14 1.56-6.13 Absolute Lymphocytes 1.50 1.18-3.74 Absolute Monocytes BLD Auto 0.67 0.24-0.82 Absolute Eos Blood 0.09 0.04-0.54 Absolute Basophils 0.06 0.01-0.08 Neutrophil % 63.9 % 34.0-70.0 Lymph% 23.2 % 20.0-52.0 Monocytes % 10.4 % 5.0-12.0 Eos % 1.4 % 0.7-7.0 Basophil% 0.9 % 0-1.2 Laboratory test 04/23/2018 [facility] C-Reactive <0.3 mg/L 0.0-4.9 [address] Protein, [place] [address] (607)- - Prealbumin 29 mg/dL 10-36 Laboratory test 05/20/2017 [facility]) PSA 2.7 ng/mL 0.0-4.0 finding CBC Electronic Fma 05/20/2017 [facility]) WBC 12.7 x10^3/UL High 4.0-10.0 RBC 5.12 x10^6/UL 3.93-6.00 HGB 16.1 g/dL 12.0-17.0 HCT 48 % 35-50 MCV 94.1 fL 80.0-95.0 MCH 31.4 pg 25.6-32.2 MCHC 33.4 g/dL 32.2-36.0 RDW-CV 12.8 % 11.6-14.4 PLT 336 x10^3/UL 163-400 MPV 9.5 fL 9.4-12.4 Ethan# 9.09 x10^3/UL High 1.56-6.13 Lymph# 1.84 x10^3/UL 1.18-3.74 Lewis# 1.47 x10^3/UL High Eos # 0.2 x10^3/UL 0.0-0.5 Baso # 0.08 x10^3/UL Ethan% 71.8 % High 34.0-70.0 Lymph % 14.5 % Low 20.0-52.0 Lewis% 11.6 % 5.0-12.0 Eos% 1.3 % 0.7-7.0 Baso% 0.6 % 0.1-1.2 Laboratory test 05/20/2017 [facility] Estradiol 21.2 pg/mL 7.6-42.6 4, 5 finding [address] [place] [address] (607)- - Testosterone, 05/20/2017 [facility] Testosterone, 838 ng/dL 264-916 6 Free And Total [address] [place] [address] (607)- - Free Testosterone(Direct) 8.8 pg/mL 7.2-24.0 Laboratory test finding 04/08/2017 [facility] Sedimentation Rate 7mm (607)- - Hemoglobin A1c (Fma) 5.3 % 4.1-5.7 Laboratory test finding 04/08/2017 [facility]) Ferritin 130 ng/mL 22-415 Vitamin B-12 1377 pg/mL High 230-1050 7 Folate Level >20.00 ng/mL High 3.00-16.00 Laboratory test 04/08/2017 [facility] Antinuclear Negative 8 finding [address] [facility] Antibodies, [place] [address] (362)- - Rheumatoid 04/08/2017 [facility] Ra Latex Turbid. 13.5 IU/mL 0.0-13 Arthritis Factor [address] [facility] .9 ([facility]) [place] [address] (255)- - 1 [id number] Comment: left forearm 2 SEE RESULT BELOW Name: NICK GUILLERMO : [address]: Katya Garcia MD Acct: [id number] Unit: [id number] AGE: 62 Location: [facility] Re06/18/18 SEX: M Status: DEP ER SPEC: [id number] LELAND: 06/18/[address]: Maddie ROBERSON REQ: [id number] RECD: 06/19/18 STATUS: COMP REANNA DR: Katya Jauregui MD _ SOURCE: ARM LEFT SPDESC: ORDERED: Culture Stain COMMENTS: [id number] Comment: left forearm Procedure Result Reported Site Wound/Misc Gram Stain Final 06/19/18- 1250 ML 2+ Neutrophils 1+ Gram Negative Bacilli Wound/Misc Culture Final 06/21/18- 0924 ML Organism 1 NORMAL CHRISTY Quantity 1+ * ML - Main Lab . END OF REPORT DEPARTMENT OF PATHOLOGY, [address] [place] [address] Jim Zeng M.D. Director [facility] # [id number] 3 1sst 4 1 sst 5 Anabella ECLIA methodology 6 Adult male reference interval is based on a population of healthy nonobese males (BMI <30) between 19 and 39 years old. Tavia et.al. JCEM 2017,102;3874-7728. PMID: [id number]. 7 RESULTS VERIFIED BY REPEAT ANALYSIS 8 Negative <1:80 Borderline 1:80 Positive >1:80 Procedures Date Code Description Status 02/11/1990 78891829 Colonoscopy Completed Encounters Type Date Location Provider Dx Diagnosis Office Visit 04/30/2018 Main Office Anderson Macias R14.0 Abdominal distension 8:00p MD Shania (gaseous) M25.50 Pain in unspecified joint Office Visit 06/03/2017 [facility] Anderson Macias Z79.890 Hormone 1:00p Office MD Shania replacement therapy Office Visit 05/20/2017 [facility] Anderson Macias Z79.890 Hormone 1:00p Office MD Shania replacement therapy Office Visit 04/08/2017 [facility] Anderson Macias M25.50 Pain in 1:50p Office MD Shania unspecified joint Plan of Treatment 06/25/2018 - Anderson Jauregui, MDR14.0 Abdominal distension (gaseous)F41.9 Anxiety disorder, unspecifiedAllComments:Medication Management Patient Understands medications he's taking? Yes No Are there Barriersto Adherence? Yes No Has the patient been asked about herbal supplements and therapies, and OTC meds? Yes No
[2018-07-10 21:58] VITALS: BP 123/79
--- NOTE | 2018-07-10 22:24 | UC ---
Skin Complaint HPI - HPI Summary HPI Summary: Cellulitis of left forearm which occurred following a scrape on the door was treated with doxycycline. Finished doxy about 10 days ago; since then he has been applying bacitracin and bandaids. Concerned about new areas of erythema ad concerned that there might "be something under there". Increasingly pruritic. - History of Current Complaint Chief Complaint: UCSkin Time Seen by Provider: 07/10/18 22:15 Stated Complaint: SORE ON ARM Hx Obtained From: Patient Onset/Duration: Gradual Onset, Lasting Weeks - 3-4 Skin Exposure Onset/Duration: Weeks Ago Timing: Constant Onset Severity: Mild Current Severity: Mild Pain Intensity: 1 Location: Discrete - left forearm Aggravating Factor(s): Touch Alleviating Factor(s): Nothing Associated Signs & Symptoms: Positive: Negative Related History: Trauma - Allergy/Home Medications Allergies/Adverse Reactions: Allergies Allergy/AdvReac Type Severity Reaction Status Date / Time cefadroxil [From Duricef] Allergy Severe Rash Verified 07/10/18 21:58 fluoxetine [From Prozac] Allergy Severe Rash Verified 07/10/18 21:58 thiabendazole Allergy Severe RED SKIN Verified 07/10/18 21:58 ciprofloxacin [From Cipro] Allergy Unknown Verified 07/10/18 21:58 Reaction Details Penicillins AdvReac Severe Nausea Verified 07/10/18 21:58 PMH/Surg Hx/FS Hx/Imm Hx Previously Healthy: No - states he has an inflaed colon and is receiving vitamin therapy - Surgical History Surgical History: None - Family History Known Family History: Positive: None - Pt denies FMHX Negative: Hypertension, Diabetes Family History: Leukemia from father side - Social History Alcohol Use: Occasionally Substance Use Type: None Smoking Status (MU): Never Smoked Tobacco - Immunization History Most Recent Tetanus Shot: 2014 Review of Systems All Other Systems Reviewed And Are Negative: Yes Constitutional: Positive: Negative Skin: Positive: Rash Eyes: Positive: Negative Gastrointestinal: Positive: Other - inflamed colon per patient. Physical Exam Triage Information Reviewed: Yes Appearance: Well-Appearing, Thin, Other: - anxious Vital Signs: Initial Vital Signs Temp 98.3 F 07/10/18 21:52 Pulse 62 07/10/18 21:52 Resp 16 07/10/18 21:52 BP 123/79 07/10/18 21:52 Pulse Ox 100 07/10/18 21:52 Vital Signs Reviewed: Yes Neck exam: Normal Respiratory: Positive: Lungs clear, Normal breath sounds Cardiovascular: Positive: RRR, No Murmur Musculoskeletal Exam: Normal Neurological: Positive: Alert Psychological Exam: Other - Mildly anxious. Skin Exam: Other - left forearm with 4 small areas of diffuse erythema, no lymphangitis. Areas are small, discrete, less than 1 cm, no blanching. Consistent with contact dermatitis from adhesive and 1 likes a healing bite. Course/Dx - Course Course Of Treatment: Advised to keep the wound lightly covered, reassured that there is no evidence of active infection. - Differential Diagnoses - Skin Complaint Differential Diagnoses: Contact Dermatitis, Other - abrasion - Diagnoses Provider Diagnosis: Contact dermatitis Discharge - Sign-Out/Discharge Documenting (check all that apply): Patient Departure All imaging exams completed and their final reports reviewed: No Studies - Discharge Plan Condition: Good Disposition: HOME Patient Education Materials: Contact Dermatitis (ED) Referrals: Anderson Jauregui MD [Primary Care Provider] - Additional Instructions: The infection is healed, and the skin is healing. Several of the spots are a reaction to adhesive and possibly to the topical antibiotic. Use 1% hydrocortisone vERY spraingly, and keep the area covered with a gazue wrap. Try not to let adhesive contact the skin. You can use oral benadryl 25mg up to 3 times daily to relieve itching. - Billing Disposition and Condition Condition: GOOD Disposition: Home
== END 2018-07-10 22:42 | disposition home or self-care (01) ==
LOC: UCEAST 21:44
DX: L25.8 Unspecified contact dermatitis due to other agents (principal); Z88.1 Allergy status to other antibiotic agents; Z88.0 Allergy status to penicillin; Z88.8 Allergy status to other drugs, medicaments and biological substances
CPT/HCPCS: 99212; G0463

== ENCOUNTER 2018-07-23 16:57 | Emergency (ER) | payer BC ==
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
[2018-07-23 18:50] VITALS: BP 119/79
[2018-07-24 10:41] LABS: ABS Basophils 0.1 10^3/ul (0-0.2); ABS Eosinophils 0.1 10^3/ul (0-0.6); ABS Lymphocytes 1.1 10^3/ul (1.0-4.8); Eosinophil % 0.7 %; Hematocrit 39 % (42-52); Lymphocyte % 10.5 %; Mean Corpuscular HGB Conc 34 g/dL (31-36); Mean Corpuscular Hemoglobin 32 pg (27-31); Mean Corpuscular Volume 94 fL (80-94); Mean Platelet Volume 7.8 fL (7.4-10.4); Platelet Count 275 10^3/uL (150-450); Red Blood Count 4.13 10^6 /uL (4.18-5.48); Red Cell Distribution Width 15 % (10-15); White Blood Count 10.2 10^3/uL (3.5-10.8)
[2018-07-24 10:56] LABS: Albumin 4.2 g/dL (3.2-5.2); Calcium 9.6 mg/dL (8.6-10.3); Potassium 3.7 mmol/L (3.5-5.0); Total Bilirubin 0.3 mg/dL (0.2-1.0)
[2018-07-24 11:02] LABS: Albumin/Globulin Ratio 2.2 (1-3); BUN/Creatinine Ratio 28.6 (8-20); EGFR African American 139.2 (>60); Globulin 1.9 g/dL (2-4); Total Protein 6.1 g/dL (6.4-8.9)
[2018-07-24 11:08] LABS: TSH (Thyroid Stimulating Horm) 2.44 mcIU/mL (0.34-5.60)
--- NOTE | 2018-07-24 15:44 | UC ---
- Progress Note Progress Note: CBC reveals very mild anemia. CMP WNL TSH WNL Can let pt know. Needs to f/u with PCP as discussed at visit for review of labs and chronic concerns. Course/Dx - Diagnoses Provider Diagnoses: Neck pain, Dry skin Discharge - Sign-Out/Discharge Documenting (check all that apply): Post-Discharge Follow Up All imaging exams completed and their final reports reviewed: No Studies - Discharge Plan Condition: Stable Disposition: HOME Referrals: Anderson Jauregui MD [Primary Care Provider] - 1 Week Additional Instructions: If you develop a fever, shortness of breath, chest pain, new or worsening symptoms - please call your PCP or go to the ED immediately. Please schedule a follow up appointment with your primary doctor for next week to review your labwork that was drawn today - Billing Disposition and Condition Condition: STABLE Disposition: Home
== END 2018-07-23 17:50 | disposition home or self-care (01) ==
LOC: UCEAST 16:57
DX: M54.2 Cervicalgia (principal); L85.3 Xerosis cutis; D64.9 Anemia, unspecified
CPT/HCPCS: 36415; 80053; 84443; 85025; 99211; G0463

== ENCOUNTER 2018-07-27 14:35 | Emergency (ER) | payer BC ==
--- NOTE | 2018-07-27 15:08 | ED ---
Complex/Multi-Sys Presentation - HPI Summary HPI Summary: The patient is a 62 y/o M presenting to [facility] with a chief complaint of swelling in lymph nodes in the neck and right inguinal aera with pain starting a few days ago. His pain is currently rated 3/10 in severity. He states that he thinks his symptoms arose from a thyroid problem, but previous lab work shows normal TSH levels and slight anemia. He additionally c/o chills. There are no aggravating or alleviating factors. 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 He has an appointment with his PCP on 07/30/18. - History Of Current Complaint Chief Complaint: EDGeneral Time Seen by Provider: 07/27/18 15:02 Hx Obtained From: Patient Onset/Duration: Sudden Onset, Lasting Days, Still Present Timing: Days Severity Currently: Mild Severity Initially: Mild Location: Pain At: - neck and right groin with lymph node swelling Character: Dull Aggravating Factor(s): none Alleviating Factor(s): none Associated Signs And Symptoms: Positive: Other - pain with swelling in lymph nodes in neck and right inguinal area, chills - Allergies/Home Medications Allergies/Adverse Reactions: Allergies Allergy/AdvReac Type Severity Reaction Status Date / Time cefadroxil [From Duricef] Allergy Severe Rash Verified 07/27/18 14:48 fluoxetine [From Prozac] Allergy Severe Rash Verified 07/27/18 14:48 thiabendazole Allergy Severe RED SKIN Verified 07/27/18 14:48 ciprofloxacin [From Cipro] Allergy Unknown Verified 07/27/18 14:48 Reaction Details Penicillins AdvReac Severe Nausea Verified 07/27/18 14:48 PMH/Surg Hx/FS Hx/Imm Hx Endocrine/Hematology History: Denies: Hx Diabetes, Hx Thyroid Disease Cardiovascular History: Denies: Hx Hypercholesterolemia, Hx Hypertension, Hx Pacemaker/ICD Respiratory History: Denies: Hx Asthma, Hx Chronic Obstructive Pulmonary Disease (COPD) GI History: Denies: Hx Ulcer History: Denies: Hx Renal Disease Musculoskeletal History: Denies: Hx Rheumatoid Arthritis, Hx Osteoporosis Sensory History: Denies: Hx Hearing Aid Psychiatric History: Denies: Hx Panic Disorder - Surgical History Surgical History: None Surgery Procedure, Year, and Place: none Infectious Disease History: No Infectious Disease History: Denies: Hx Hepatitis, Hx Human Immunodeficiency Virus (HIV), Traveled Outside the [place] in Last 30 Days - Family History Known Family History: Negative: Cardiac Disease, Hypertension, Diabetes Family History: Leukemia from father side - Social History Alcohol Use: Occasionally Hx Substance Use: No Substance Use Type: Reports: None Hx Tobacco Use: No Smoking Status (MU): Never Smoked Tobacco Do You Chew or Dip Tobacco: No Have You Chewed or Dipped Tobacco in the LAST YEAR: No Have You Smoked in the Last Year: No Review of Systems Positive: Chills Positive: Other - swelling of lymph nodes in neck Positive: other - lymph node swelling in right inguinal area Positive: Myalgia - pain in bilateral neck All Other Systems Reviewed And Are Negative: Yes Physical Exam - Summary Physical Exam Summary: VITAL SIGNS: Reviewed. GENERAL: Patient is a well-developed and nourished male who is lying comfortable in the stretcher. Patient is not in any acute respiratory distress. HEAD AND FACE: No signs of trauma. No ecchymosis, hematomas or skull depressions. No sinus tenderness. EYES: PERRLA, EOMI x 2, No injected conjunctiva, no nystagmus. EARS: Hearing grossly intact. Ear canals and tympanic membranes are within normal limits. MOUTH: Oropharynx within normal limits. NECK: Supple, trachea is midline, no adenopathy, no JVD, no carotid bruit, no c- spine tenderness, neck with full ROM. CHEST: Symmetric, no tenderness at palpation LUNGS: Clear to auscultation bilaterally. No wheezing or crackles. CVS: Regular rate and rhythm, S1 and S2 present, no murmurs or gallops appreciated. ABDOMEN: Soft, non-tender. No signs of distention. No rebound no guarding, and no masses palpated. Bowel sounds are normal. EXTREMITIES: FROM in all major joints, no edema, no cyanosis or clubbing. NEURO: Alert and oriented x 3. No acute neurological deficits. Speech is normal and follows commands. SKIN: Dry and warm. Triage Information Reviewed: Yes Vital Signs On Initial Exam: Initial Vitals Temp Pulse Resp BP Pulse Ox 97.2 F 66 16 135/82 99 07/27/18 14:41 07/27/18 14:41 07/27/18 14:41 07/27/18 14:41 07/27/18 14:41 Vital Signs Reviewed: Yes Diagnostics - Vital Signs Vital Signs Temp Pulse Resp BP Pulse Ox 07/27/18 14:41 97.2 F 66 16 135/82 99 - Laboratory Lab Statement: Any lab studies that have been ordered have been reviewed, and results considered in the medical decision making process. Complex Multi-Symp Course/Dx Assessment/Plan: The patient is a 62 y/o M presenting to [facility] with a chief complaint of swelling in lymph nodes in the neck and right inguinal area with pain starting a few days ago. His pain is currently rated 3/10 in severity. He states that he thinks his symptoms arose from a thyroid problem, but previous lab work shows normal TSH levels and slight anemia. He additionally c/o chills. There are no aggravating or alleviating factors. 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 He has an appointment with his PCP on 07/30/18. In the ED course the patient reports that he has some lymphadenopathy in the neck and the inguinal area. During the physical exam there was no lymphadenopathy. He reports it most likely resolved while he was waiting in the ED. He has no other complaints. Patient had blood work done on 07/23/18, and the blood work was within normal limits including the TSH. Therefore I discuss my physical exam with the patient, and since he doesnt have any other complaints, he will be discharged home with follow-up with his primary care physician as scheduled this week. The patient understands and agrees. I discussed all the findings and test results with the patient. Patient was instructed to return to the emergency room immediately if any of the symptoms return worsens. Plan of care was discussed with the patient and understands and agrees. All questions were answered at patient satisfaction. There were no further complaints or concerns. Lung exam before discharge: CTA B/L. Good air exchange. No wheezing or crackles heard. CVS: S1 and S2 present. No murmurs appreciated. Patient is alert and oriented x 3. Patient is hemodynamically stable. Patient will be discharged home with follow up PCP in the next 2-3 days. - Diagnoses Provider Diagnoses: Lymphadenopathy Discharge - Sign-Out/Discharge Documenting (check all that apply): Patient Departure - Patient will be discharged home. Patient Received Moderate/Deep Sedation with Procedure: No - Discharge Plan Condition: Good Disposition: HOME Patient Education Materials: Lymphadenopathy (ED) Referrals: Anderson Jauregui MD [Primary Care Provider] - 07/30/18 Additional Instructions: Follow up with your primary care provider on Monday, July 30, 2018, as planned. RETURN TO THE EMERGENCY DEPARTMENT FOR ANY NEW OR WORSENING SYMPTOMS. - Billing Disposition and Condition Condition: GOOD Disposition: Home - Attestation Statements Document Initiated by [place]: Yes Documenting Scribe: Chiquita York Provider For Whom [place] is Documenting (Include Credential): Dr. Jonathon Longoria MD Scribe Attestation: IChiquita scribed for Dr. Jonathon Longoria MD on 07/27/18 at 1758. Scribe Documentation Reviewed: Yes Provider Attestation: The documentation as recorded by the Chiquita morales accurately reflects the service I personally performed and the decisions made by me, Dr. Jonathon Longoria MD Status of Scribe Document: Ready
[2018-07-27 15:14] VITALS: BP 132/83
== END 2018-07-27 15:13 | disposition home or self-care (01) ==
LOC: ED 14:35
DX: R59.1 Generalized enlarged lymph nodes (principal)
CPT/HCPCS: 99282

== ENCOUNTER 2019-01-30 20:01 | Emergency (ER) | payer BC ==
[2019-01-30 20:10] VITALS: BP 136/76
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
[2019-01-30] MEDS ORDERED: HYDROcodone/ACETAMIN 5-325 MG* 1 TAB PO ONE (21:14)
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
== END 2019-01-30 21:28 | disposition home or self-care (01) ==
LOC: UCEAST 20:01
DX: S50.01XA Contusion of right elbow, initial encounter (principal); S70.12XA Contusion of left thigh, initial encounter; M16.12 Unilateral primary osteoarthritis, left hip; I70.202 Unspecified atherosclerosis of native arteries of extremities, left leg; Z88.1 Allergy status to other antibiotic agents; Z88.8 Allergy status to other drugs, medicaments and biological substances; Z88.0 Allergy status to penicillin; V29.9XXA Motorcycle rider (driver) (passenger) injured in unspecified traffic accident, initial encounter; Y92.9 Unspecified place or not applicable
CPT/HCPCS: 99212; G0463

== ENCOUNTER 2019-02-01 15:08 | Emergency (ER) | payer BC ==
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
[2019-02-01] MEDS ORDERED: HYDROcodone/ACETAMIN 5-325 MG* 1 TAB PO ONE (16:03)
[2019-02-01 17:12] VITALS: BP 168/81
== END 2019-02-01 17:11 | disposition home or self-care (01) ==
LOC: ED 15:08
DX: S50.311A Abrasion of right elbow, initial encounter (principal); M25.562 Pain in left knee; V18.4XXA Pedal cycle driver injured in noncollision transport accident in traffic accident, initial encounter; Y93.55 Activity, bike riding; Y92.9 Unspecified place or not applicable; Z88.1 Allergy status to other antibiotic agents; Z88.0 Allergy status to penicillin; Z88.8 Allergy status to other drugs, medicaments and biological substances
CPT/HCPCS: 99282